=== PATIENT | female | born 1970 | race Hispanic/Latino ===

== ENCOUNTER 2016-11-10 14:57 | Observation (INO) | payer BC ==
--- NOTE | 2016-11-10 15:52 | ED PDOC ---
HPI: Chest Pain Chief Complaint (Provider): Chest Pain History Per: Patient History/Exam Limitations: no limitations Onset/Duration Of Symptoms: Intermittent Episodes (x 1 wk) Current Symptoms Are (Timing): Intermittent Episodes (not present at this time) Quality: Pressure Modifying Factors: None Exacerbating Factors: None Alleviating Factors: None <Nik Fry - Last Filed: 11/10/16 18:27> <Ketty Zavaleta - Last Filed: 11/10/16 18:32> Time Seen by Provider: 11/10/16 15:15 Chief Complaint (Nursing): Chest Pain Additional Complaint(s): 46 year old female with medical history of HTN presents to ED via PCP due to chest pain and abnormal EKG. Patient states she has been having chest pressure for 1 week, in which she was evaluated by her PCP this morning. Patient was found to have an abnormal EKG (RBBB) and sent to ED. Patient states chest pressure is intermittent and has an associated dry cough/palpitations. Patient states PCP has been adjusting HTN medications due to propensity to have side effects of medications (including rash, palpitations). Patient denies fever, chills, recent illness/travel, headache, change of vision, dyspnea, abdominal pain, trauma, back pain, urinary/bowel changes, vaginal bleeding, or drug/ tobacco use. Patient drinks beer daily 1-5 beers per day. Denies family history of cardiac disease. LMP: 1 month ago (estimated by patient) PMD : Tracy (Nik Fry) Past Medical History Reviewed: Historical Data, Nursing Documentation, Vital Signs - Medical History PMH: HTN - Surgical History Surgical History: No Surg Hx - Family History Family History: States: No Known Family Hx - Social History Current smoker - smoking cessation education provided: No Alcohol: > 2 Drinks/Day Drugs: Denies <Nik Fry - Last Filed: 11/10/16 18:27> <Ketty Zavaleta - Last Filed: 11/10/16 18:32> Vital Signs: Last Vital Signs Temp 97.6 F 11/10/16 15:05 Pulse 73 11/10/16 15:05 Resp 20 11/10/16 15:05 BP 161/78 H 11/10/16 15:05 Pulse Ox 99 11/10/16 18:27 - Home Medications Home Medications: Ambulatory Orders Medication Instructions Recorded Lisinopril [Zestril] 30 mg PO DAILY 11/10/16 - Allergies Allergies/Adverse Reactions: Allergies Allergy/AdvReac Type Severity Reaction Status Date / Time No Known Allergies Allergy Verified 11/10/16 15:05 AUDI Risk Score for UA/NSTEMI - AUDI Risk Score Age > 64: NO 3 or more CAD Risk Factors: NO Known CAD (Stenosis greater than 50%): NO Aspirin use in past 7 days: NO Severe Angina: NO EKG ST changes greater than 0.5mm: NO Positive Cardiac Marker: NO AUDI Score: 0 Risk %: 5% <Nik Fry - Last Filed: 11/10/16 18:27> Review of Systems ROS Statement: Except As Marked, All Systems Reviewed And Found Negative Cardiovascular: Positive for: Chest Pain, Palpitations Respiratory: Positive for: Shortness of Breath <Nik Fry - Last Filed: 11/10/16 18:27> Physical Exam - Reviewed Nursing Documentation Reviewed: Yes Vital Signs Reviewed: Yes - Physical Exam Appears: Positive for: Well, Non-toxic, No Acute Distress Head Exam: Positive for: ATRAUMATIC, NORMAL INSPECTION, NORMOCEPHALIC Skin: Positive for: Normal Color, Warm, Dry Eye Exam: Positive for: Normal appearance, EOMI, PERRL ENT: Positive for: Normal ENT Inspection Neck: Positive for: Normal, Painless ROM, Supple Cardiovascular/Chest: Positive for: Regular Rate, Rhythm. Negative for: Murmur , Irregularly Irregular Respiratory: Positive for: Normal Breath Sounds. Negative for: Rales, Rhonchi, Wheezing Gastrointestinal/Abdominal: Positive for: Normal Exam, Bowel Sounds (present), Soft. Negative for: Tenderness Back: Positive for: Normal Inspection. Negative for: L CVA Tenderness, R CVA Tenderness Extremity: Positive for: Normal ROM. Negative for: Tenderness, Pedal Edema Neurologic/Psych: Positive for: Alert, store receiver II-XII, Oriented, Gait (normal). Negative for: Motor/Sensory Deficits <Nik Fry - Last Filed: 11/10/16 18:27> - Laboratory Results Result Diagrams: 11/10/16 15:55 11/10/16 15:55 - ECG ECG: Positive for: Interpreted By Me, Viewed By Me ECG Rhythm: Positive for: Normal QRS, Normal ST Segment, Sinus Rhythm, Right Bundle Branch Block O2 Sat by Pulse Oximetry: 99 Pulse Ox Interpretation: Normal - Radiology X-Ray: Interpreted by Me, Viewed By Me X-Ray Interpretation: No Acute Disease <Nik Fry - Last Filed: 11/10/16 18:27> - Laboratory Results Result Diagrams: 11/10/16 15:55 11/10/16 15:55 <Ketty Zavaleta - Last Filed: 11/10/16 18:32> - Progress ED Course And Treament: Time: 1550 Initial impression: 46 year old female with medical history of HTN with intermittent episodes of chest pressure associated with cough/palpitations x 1 week. No current symptoms. BP meds changed 2 weeks ago. Plan: * EKG * CARDIAC MONITORING * ASA 325MG PO * CBC * CMP * TROPONIN * CK-MB * PT/PTT * CXR * REEVAL Time: 1800 Labs/CXR reviewed, unremarkable. Patient with risk factors and abnormal EKG. Discussed case with PCP, will admit patient for OBS-TELE. Consult for Dr. Lino delgado. (Nik Fry) Medical Decision Making <Nik Fry - Last Filed: 11/10/16 18:27> <Ketty Zavaleta - Last Filed: 11/10/16 18:32> Medical Decision Making: Patient seen by resident and then seen by me. Patient reports midsternal chest pressure that has now resolved. Normal physical exam. Patient has cardiac risk factors and abnormal ekg- EKG shows NSR at 66bpm with LAD and incomplete RBBB with no prior for comparison. Trop x 1 negative. Will transfer to observation for further evaluation. (Ketty Zavaleta) Disposition - Patient ED Disposition Is Patient to be Admitted: Yes Counseled Patient/Family Regarding: Studies Performed, Diagnosis - Disposition Disposition Time: 18:26 - Pt Status Changed To: Hospital Disposition Of: Observation <Nik Fry - Last Filed: 11/10/16 18:27> <Ketty Zavaleta - Last Filed: 11/10/16 18:32> - Clinical Impression Clinical Impression: Chest pain - Disposition Condition: FAIR
[2016-11-10 16:57] LABS: BASO % 0.5 % (0.0-2.0); EOS # 0.1 K/uL (0.0-0.7); EOS % 1.2 % (0.0-4.0); HEMATOCRIT 41.1 % (34.0-47.0); LYMPH # 1.4 K/uL (1.0-4.3); LYMPH % 17.9 % (20.0-40.0); MEAN CELL VOLUME 88.5 fl (81.0-99.0); MEAN CORPUSCULAR HGB CONC 32.8 g/dL (33.0-37.0); MEAN PLATELET VOLUME 9.2 fl (7.2-11.7); MONO # 0.7 K/uL (0.0-0.8); MONO % 8.6 % (0.0-10.0); NEUT # 5.7 K/uL (1.8-7.0); NEUT % 71.8 % (50.0-75.0); RED CELL DISTRIBUTION WIDTH 13.8 % (11.5-14.5); WHITE BLOOD COUNT 7.9 K/uL (4.8-10.8)
[2016-11-10 16:58] LABS: ALB/GLOB RATIO 1.2 (1.0-2.1); ALKALINE PHOSPHATASE 92 U/L (38-126); ALT/SGPT 28 U/L (9-52); AST/SGOT 33 U/L (14-36); BILIRUBIN,TOTAL 0.4 mg/dl (0.2-1.3); BLOOD UREA NITROGEN 12 mg/dl (7-17); CALCIUM 9.6 mg/dL (8.4-10.2); CARBON DIOXIDE 24 mmol/L (22-30); CHLORIDE 103 mmol/L (98-107); GLUCOSE,RANDOM 87 mg/dL (65-105); POTASSIUM 3.6 MMOL/L (3.6-5.0); SODIUM 138 mmol/l (132-148); TOTAL PROTEIN 8.3 G/DL (6.3-8.2)
[2016-11-10 17:06] LABS: PARTIAL THROMBOPLASTIN TIME 25.7 SECONDS (23.3-32.5)
[2016-11-10 17:38] LABS: GFR AFRICAN-AMERICAN > 60
--- NOTE | 2016-11-10 18:35 | RAD ---
HISTORY: chest pressure COMPARISON: No prior. FINDINGS: LUNGS: No active pulmonary disease. PLEURA: No significant pleural effusion identified, no pneumothorax apparent. CARDIOVASCULAR: Normal. OSSEOUS STRUCTURES: No significant abnormalities. VISUALIZED UPPER ABDOMEN: Normal. OTHER FINDINGS: None. IMPRESSION: No active disease.
--- NOTE | 2016-11-11 06:28 | CP.PCM.CON ---
History of Present Illness - History of Present Illness History of Present Illness: I was asked to see pateint by Ramya Garg APN and Dr. Evangelista. Patient is a 46 year old male with PMH HTN who presents with chest pain. The patient has had HTN which is difficult to control, and has been on various different therapies. The patietn states she has noted intermittent substernal chest pressure. Symptoms occur with lifting heavy objects or exerting herself. The patient states symptoms have become progressively worse. Review of Systems - Constitutional Constitutional: absent: As Per HPI, Anorexia, Chills, Daytime Sleepiness, Excessive Sweating, Fatigue, Fever, Frequent Falls, Headache, Increased Appetite , Lethargy, Malaise, Night Sweats, Snoring, Sleep Apnea, Weight Gain, Weight Loss, Weakness, Other - EENT Eyes: absent: As Per HPI, Blind Spots, Blurred Vision, Change in Vision, Decreased Night Vision, Diplopia, Discharge, Dry Eye, Exophthalmos, Floaters, Irritation, Itchy Eyes, Loss of Peripheral Vision, Pain, Photophobia, Requires Corrective Lenses, Sees Flashes, Spots in Vision, Tunnel Vision, Other Visual Disturbances, Loss of Vision, Other Ears: absent: As Per HPI, Decreased Hearing, Ear Discharge, Ear Pain, Tinnitus, Abnormal Hearing, Disequilibrium, Dizziness, Other Nose/Mouth/Throat: absent: As Per HPI, Epistaxis, Nasal Congestion, Nasal Discharge, Nasal Obstruction, Nasal Trauma, Nose Pain, Post Nasal Drip, Sinus Pain, Sinus Pressure, Bleeding Gums, Change in Voice, Dental Pain, Dry Mouth, Dysphagia, Halitosis, Hoarsness, Lip Swelling, Mouth Lesions, Mouth Pain, Odynophagia, Sore Throat, Throat Swelling, Tongue Swelling, Facial Pain, Neck Pain, Neck Mass, Other - Breasts Breasts: absent: As Per HPI, Change in Shape, Mass, Pain, Nipple Discharge, Nipple Inversion, Skin Changes, Swelling, Other - Cardiovascular Cardiovascular: Chest Pain - Respiratory Respiratory: absent: As Per HPI, Cough, Dyspnea, Hemoptysis, Dyspnea on Exertion , Wheezing, Snoring, Stridor, Pain on Inspiration, Chest Congestion, Excessive Mucous Production, Change in Mucous Color, Pain with Coughing, Other - Gastrointestinal Gastrointestinal: absent: As Per HPI, Abdominal Pain, Belching, Bloating, Change in Bowel Habits, Change in Stool Character, Coffee Ground Emesis, Constipation, Cramping, Diarrhea, Dyspepsia, Dysphagia, Early Satiety, Excessive Flatus, Fecal Incontinence, Heartburn, Hematemesis, Hematochezia, Loose Stools, Melena, Nausea, Odynophagia, Temesmus, Vomiting, Other - Genitourinary Genitourinary: absent: As Per HPI, Change in Urinary Stream, Difficulty Urinating, Dysuria, Flank Pain, Hematuria, Pyuria, Nocturia, Urinary Incontinence, Urinary Frequency, Urinary Hesitance, Urinary Urgency, Voiding Freq/Small Amts, Freq UTI, Hx Renal/Bladder Calculi, Hx /Renal Surgery, Bladder Distension, Other - Musculoskeletal Musculoskeletal: absent: As Per HPI, Abnormal Gait, Arthralgias, Atrophy, Back Pain, Deformity, Joint Swelling, Limited Range of Motion, Loss of Height, Muscle Cramps, Muscle Weakness, Myalgias, Neck Pain, Numbness, Radiating Pain into Limb, Stiffness, Tingling, Other - Integumentary Integumentary: absent: As Per HPI, Acne, Alopecia, Bleeding Lesions, Change in Hair, Change in Nails, Change in Pigmentation, Changing Lesions, Dry Skin, Erythema, Furuncle, Hirsutism, Lesions, New Lesions, Non-Healing Lesions, Photosensitivity, Pruritus, Rash, Skin Pain, Skin Ulcer, Sores, Striae, Swelling , Unusual Bruising, Wounds, Jaundice, Other - Neurological Neurological: absent: As Per HPI, Abnormal Gait, Abnormal Hearing, Abnormal Movements, Abnormal Speech, Behavioral Changes, Burning Sensations, Confusion, Convulsions, Disequilibrium, Dizziness, Numbness, Focal Weakness, Frequent Falls , Headaches, Lack of Coordination, Loss of Vision, Memory Loss, Paresthesias, Radicular Pain, Restless Legs, Sensory Deficit, Syncope, Tingling, Tremor, Vertigo, Weakness, Other Visual Disturbances, Other - Psychiatric Psychiatric: absent: As Per HPI, Abnormal Sleep Pattern, Anhedonia, Anxiety, Auditory Hallucinations, Behavioral Changes, Change in Appetite, Change in Libido, Confusion, Depression, Difficulty Concentrating, Hallucinations, Homicidal Ideation, Hopelessness, Irritability, Memory Loss, Mood Swings, Panic Attacks, Paranoia, Suicidal Ideation, Visual Hallucinations, Tactile Hallucinations, Other - Endocrine Endocrine: absent: As Per HPI, Change in Body Appearance, Change in Libido, Cold Intolorance, Deepening of Voice, Excessive Sweating, Fatigue, Flushing, Heat Intolorance, Increase in Ring/Shoe/Hat Size, Palpitations, Polydipsia, Polyphagia, Polyuria, Other - Hematologic/Lymphatic Hematologic: absent: As Per HPI, Easy Bleeding, Easy Bruising, Lymphadenopathy, Other Past Patient History - Past Medical History & Family History Past Medical History?: Yes - Past Social History Smoking Status: Never Smoked - CARDIAC Hx Cardiac Disorders: Yes Hx Hypertension: Yes - PULMONARY Hx Respiratory Disorders: No - NEUROLOGICAL Hx Neurological Disorder: Yes Hx Vertigo: Yes - HEENT Hx HEENT Problems: No - RENAL Hx Chronic Kidney Disease: No - ENDOCRINE/METABOLIC Hx Endocrine Disorders: No - HEMATOLOGICAL/ONCOLOGICAL Hx Blood Disorders: No Hx AIDS: No Hx Human Immunodeficiency Virus (HIV): No - INTEGUMENTARY Hx Dermatological Problems: No - MUSCULOSKELETAL/RHEUMATOLOGICAL Hx Musculoskeletal Disorders: No Hx Falls: No - GASTROINTESTINAL Hx Gastrointestinal Disorders: No - GENITOURINARY/GYNECOLOGICAL Hx Genitourinary Disorders: No - PSYCHIATRIC Hx Psychophysiologic Disorder: No Hx Substance Use: No - SURGICAL HISTORY Hx Surgeries: No - ANESTHESIA Hx Anesthesia: No Meds Allergies/Adverse Reactions: Allergies Allergy/AdvReac Type Severity Reaction Status Date / Time No Known Allergies Allergy Verified 11/10/16 15:05 - Medications Medications: Current Medications Aspirin (Aspirin Chewable) 81 mg PO DAILY FREDIS Lisinopril (Zestril) 30 mg PO DAILY FREDIS Physical Exam - Constitutional Appears: Non-toxic - Head Exam Head Exam: NORMAL INSPECTION - Eye Exam Eye Exam: Normal appearance - ENT Exam ENT Exam: Mucous Membranes Moist - Neck Exam Neck exam: Positive for: Full Rom - Respiratory Exam Respiratory Exam: NORMAL BREATHING PATTERN - Cardiovascular Exam Cardiovascular Exam: REGULAR RHYTHM - GI/Abdominal Exam GI & Abdominal Exam: Normal Bowel Sounds - Rectal Exam Rectal Exam: Deferred - Extremities Exam Extremities exam: Positive for: normal inspection - Back Exam Back exam: NORMAL INSPECTION - Neurological Exam Neurological exam: Alert, Oriented x3 - Psychiatric Exam Psychiatric exam: Normal Affect - Skin Skin Exam: Normal Color Results - Vital Signs Recent Vital Signs: Last Vital Signs Temp 97.8 F 11/11/16 05:04 Pulse 68 11/11/16 05:04 Resp 19 11/11/16 05:04 BP 136/91 H 11/11/16 05:04 Pulse Ox 99 11/11/16 05:04 - Labs Result Diagrams: 11/10/16 15:55 11/10/16 15:55 Labs: Laboratory Results - last 24 hr 11/10/16 23:13 Troponin I < 0.0120 - EKG Data EKG Interpreted by: Myself EKG shows normal: Sinus rhythm Assessment & Plan (1) Chest pain Assessment and Plan: recommend admission to telemetry to rule out for myocardial infarction. Recommend stress test in am. Status: Acute (2) HTN (hypertension) Assessment and Plan: will readjust antiHTN therapy Status: Acute
[2016-11-11 07:14] LABS: BASO % 0.6 % (0.0-2.0); EOS # 0.1 K/uL (0.0-0.7); EOS % 1.5 % (0.0-4.0); HEMATOCRIT 40.1 % (34.0-47.0); LYMPH # 1.7 K/uL (1.0-4.3); LYMPH % 26.7 % (20.0-40.0); MEAN CELL VOLUME 88.2 fl (81.0-99.0); MEAN CORPUSCULAR HEMOGLOBIN 29.5 pg (27.0-31.0); MEAN CORPUSCULAR HGB CONC 33.5 g/dL (33.0-37.0); MEAN PLATELET VOLUME 9.3 fl (7.2-11.7); MONO # 0.7 K/uL (0.0-0.8); MONO % 10.7 % (0.0-10.0); NEUT # 3.8 K/uL (1.8-7.0); NEUT % 60.5 % (50.0-75.0); NRBC % 0.1 % (0.0-0.0); RED CELL DISTRIBUTION WIDTH 14.2 % (11.5-14.5); WHITE BLOOD COUNT 6.3 K/uL (4.8-10.8)
[2016-11-11 07:34] LABS: ALB/GLOB RATIO 1.2 (1.0-2.1); ALKALINE PHOSPHATASE 78 U/L (38-126); ALT/SGPT 27 U/L (9-52); AST/SGOT 28 U/L (14-36); BILIRUBIN,TOTAL 0.5 mg/dl (0.2-1.3); BLOOD UREA NITROGEN 11 mg/dl (7-17); CALCIUM 9.3 mg/dL (8.4-10.2); CARBON DIOXIDE 28 mmol/L (22-30); CHLORIDE 103 mmol/L (98-107); GFR AFRICAN-AMERICAN > 60; GLUCOSE,RANDOM 81 mg/dL (65-105); POTASSIUM 3.8 MMOL/L (3.6-5.0); SODIUM 140 mmol/l (132-148); TOTAL PROTEIN 7.5 G/DL (6.3-8.2)
--- NOTE | 2016-11-11 07:48 | CP.PCM.HP ---
History of Present Illness - History of Present Illness History of Present Illness: pt admitted to [facility] for cp. at present still w/ mild chest pressure. no f/c , n/v/d. trops negative x 3, cardio consult appriciated. pending stress symptoms on/off but getting worse. ekg reveiwed bw noted. Present on Admission - Present on Admission Any Indicators Present on Admission: No Review of Systems - Cardiovascular Cardiovascular: As Per HPI, Chest Pain Past Patient History - Past Medical History & Family History Past Medical History?: Yes - Past Social History Smoking Status: Never Smoked - CARDIAC Hx Cardiac Disorders: Yes Hx Hypertension: Yes - PULMONARY Hx Respiratory Disorders: No - NEUROLOGICAL Hx Neurological Disorder: Yes Hx Vertigo: Yes - HEENT Hx HEENT Problems: No - RENAL Hx Chronic Kidney Disease: No - ENDOCRINE/METABOLIC Hx Endocrine Disorders: No - HEMATOLOGICAL/ONCOLOGICAL Hx Blood Disorders: No Hx AIDS: No Hx Human Immunodeficiency Virus (HIV): No - INTEGUMENTARY Hx Dermatological Problems: No - MUSCULOSKELETAL/RHEUMATOLOGICAL Hx Musculoskeletal Disorders: No Hx Falls: No - GASTROINTESTINAL Hx Gastrointestinal Disorders: No - GENITOURINARY/GYNECOLOGICAL Hx Genitourinary Disorders: No - PSYCHIATRIC Hx Psychophysiologic Disorder: No Hx Substance Use: No - SURGICAL HISTORY Hx Surgeries: No - ANESTHESIA Hx Anesthesia: No Meds Home Medications: Home Medication List Medication Instructions Recorded Confirmed Type Aspirin [Aspirin Chewable] 81 mg PO DAILY 11/11/16 Rx Allergies/Adverse Reactions: Allergies Allergy/AdvReac Type Severity Reaction Status Date / Time No Known Allergies Allergy Verified 11/10/16 15:05 Physical Exam - Constitutional Appears: Well, Non-toxic, No Acute Distress - Head Exam Head Exam: ATRAUMATIC, NORMAL INSPECTION, NORMOCEPHALIC - Eye Exam Eye Exam: EOMI, Normal appearance, PERRL Pupil Exam: NORMAL ACCOMODATION, PERRL - ENT Exam ENT Exam: Mucous Membranes Moist, Normal Exam - Neck Exam Neck exam: Positive for: Normal Inspection - Respiratory Exam Respiratory Exam: Clear to Auscultation Bilateral, NORMAL BREATHING PATTERN - Cardiovascular Exam Cardiovascular Exam: REGULAR RHYTHM, RRR, +S1, +S2 - GI/Abdominal Exam GI & Abdominal Exam: Normal Bowel Sounds, Soft. absent: Tenderness - Extremities Exam Extremities exam: Positive for: full ROM, normal capillary refill, normal inspection, pedal pulses present - Back Exam Back exam: NORMAL INSPECTION - Neurological Exam Neurological exam: Alert, CN II-XII Intact, Normal Gait, Oriented x3, Reflexes Normal - Psychiatric Exam Psychiatric exam: Normal Affect, Normal Mood - Skin Skin Exam: Dry, Intact, Normal Color, Warm Results - Vital Signs Recent Vital Signs: Last Vital Signs Temp 97.8 F 11/11/16 05:04 Pulse 68 11/11/16 05:04 Resp 19 11/11/16 05:04 BP 136/91 H 11/11/16 05:04 Pulse Ox 99 11/11/16 05:04 - Labs Result Diagrams: 11/11/16 05:40 11/11/16 05:40 Labs: Laboratory Results - last 24 hr 11/10/16 11/11/16 11/11/16 23:13 05:40 05:40 WBC 6.3 RBC 4.55 Hgb 13.4 Hct 40.1 MCV 88.2 MCH 29.5 MCHC 33.5 RDW 14.2 Plt Count 187 MPV 9.3 Neut % (Auto) 60.5 Lymph % (Auto) 26.7 [place] % (Auto) 10.7 H Eos % (Auto) 1.5 Baso % (Auto) 0.6 Neut # 3.8 Lymph # 1.7 [place] # 0.7 Eos # 0.1 Baso # 0.0 Sodium 140 Potassium 3.8 Chloride 103 Carbon Dioxide 28 Anion Gap 13 BUN 11 Creatinine 0.7 Est GFR ( Amer) > 60 Est GFR (Non-Af Amer) > 60 Random Glucose 81 Calcium 9.3 Total Bilirubin 0.5 AST 28 ALT 27 Alkaline Phosphatase 78 Troponin I < 0.0120 < 0.0120 Total Protein 7.5 Albumin 4.1 Globulin 3.3 Albumin/Globulin Ratio 1.2 Assessment & Plan (1) DVT prophylaxis Assessment and Plan: scd and aehose ambulation Status: Acute (2) Chest pain Assessment and Plan: trops cardio asa stress test Status: Acute (3) HTN (hypertension) Assessment and Plan: lisinopril Status: Acute Decision To Admit - Pt Status Changed To: Hospital Disposition Of: Observation - . Bed Request Type: Telemetry Admitting Physician: Mary Evangelista
[2016-11-11 08:21] VITALS: RESP 20; O2SAT 100
[2016-11-11] MEDS ORDERED: LISINOPRIL 30 MG PO SCH (09:00)
[2016-11-11 13:56] VITALS: BP 140/90; PULSE 64; TEMP 98
--- NOTE | 2016-11-11 14:11 | CP.PCM.DIS ---
Provider - Provider Date of Admission: 11/10/16 18:21 Attending physician: Mary Evangelista MD Time Spent in preparation of Discharge (in minutes): 15 Hospital Course - Lab Results Lab Results: Most Recent Lab Values WBC 6.3 K/uL (4.8-10.8) 11/11/16 05:40 RBC 4.55 Mil/uL (3.80-5.20) 11/11/16 05:40 Hgb 13.4 g/dL (12.0-16.0) 11/11/16 05:40 Hct 40.1 % (34.0-47.0) 11/11/16 05:40 MCV 88.2 fl (81.0-99.0) 11/11/16 05:40 MCH 29.5 pg (27.0-31.0) 11/11/16 05:40 MCHC 33.5 g/dL (33.0-37.0) 11/11/16 05:40 RDW 14.2 % (11.5-14.5) 11/11/16 05:40 Plt Count 187 K/uL (130-400) 11/11/16 05:40 MPV 9.3 fl (7.2-11.7) 11/11/16 05:40 Neut % (Auto) 60.5 % (50.0-75.0) 11/11/16 05:40 Lymph % (Auto) 26.7 % (20.0-40.0) 11/11/16 05:40 [place] % (Auto) 10.7 % (0.0-10.0) H 11/11/16 05:40 Eos % (Auto) 1.5 % (0.0-4.0) 11/11/16 05:40 Baso % (Auto) 0.6 % (0.0-2.0) 11/11/16 05:40 Neut # 3.8 K/uL (1.8-7.0) 11/11/16 05:40 Lymph # 1.7 K/uL (1.0-4.3) 11/11/16 05:40 [place]ison # 0.7 K/uL (0.0-0.8) 11/11/16 05:40 Eos # 0.1 K/uL (0.0-0.7) 11/11/16 05:40 Baso # 0.0 K/uL (0.0-0.2) 11/11/16 05:40 PT 11.0 SECONDS (9.6-11.2) 11/10/16 15:55 INR 1.06 (0.92-1.08) 11/10/16 15:55 APTT 25.7 SECONDS (23.3-32.5) 11/10/16 15:55 Sodium 140 mmol/l (132-148) 11/11/16 05:40 Potassium 3.8 MMOL/L (3.6-5.0) 11/11/16 05:40 Chloride 103 mmol/L (98-107) 11/11/16 05:40 Carbon Dioxide 28 mmol/L (22-30) 11/11/16 05:40 Anion Gap 13 (10-20) 11/11/16 05:40 BUN 11 mg/dl (7-17) 11/11/16 05:40 Creatinine 0.7 mg/dL (0.7-1.2) 11/11/16 05:40 Est GFR ( Amer) > 60 11/11/16 05:40 Est GFR (Non-Af Amer) > 60 11/11/16 05:40 Random Glucose 81 mg/dL (65-105) 11/11/16 05:40 Calcium 9.3 mg/dL (8.4-10.2) 11/11/16 05:40 Total Bilirubin 0.5 mg/dl (0.2-1.3) 11/11/16 05:40 AST 28 U/L (14-36) 11/11/16 05:40 ALT 27 U/L (9-52) 11/11/16 05:40 Alkaline Phosphatase 78 U/L (38-126) 11/11/16 05:40 CK-MB (Mass) 0.75 ng/mL (0.0-3.38) 11/10/16 15:55 Troponin I < 0.0120 ng/mL (0.00-0.120) 11/11/16 05:40 Total Protein 7.5 G/DL (6.3-8.2) 11/11/16 05:40 Albumin 4.1 g/dL (3.5-5.0) 11/11/16 05:40 Globulin 3.3 gm/dL (2.2-3.9) 11/11/16 05:40 Albumin/Globulin Ratio 1.2 (1.0-2.1) 11/11/16 05:40 Discharge Exam - Head Exam Head Exam: NORMAL INSPECTION Discharge Plan - Follow Up Plan Condition: FAIR Disposition: HOME/ ROUTINE Additional Instructions: cleared by cardio f/u rmg in am, rted prn, meds per med rec final dx- cp
--- NOTE | 2016-11-12 11:19 | CARD ---
APPROVED REPORT Protocol: KELVIN Test Type: Treadmill Stress Test Attending Physician: Dr. Land Referring Physician: Dr. JUANCARLOS Garg [facility] Technologist: Juan Carlos Cisse Test Indications: chest pain Medications: ASA 81 mg, Lisinopril 30mg. Medical History: Hypertension Target HR: 174 bpm Resting ECG: normal Resting Heart Rate: 90 bpm Resting Blood Pressure: 140/90mmHg submaximum (85%): 148 bpm TEST SUMMARY [id number]. [id number]. [id number]/[id number]. [id number]/[id number]. EXERCISESTAGE [id number]/70.0. EXERCISESTAGE [id number]/80.0. EXERCISESTAGE 301:[id number]/80.0. [id number]/78.0. POST EXERCISE Reason for Termination: Target heart rate achieved Target HR: NoMax HR: 164 bpm94% of Maximum Predicted HR: 174 bpm Exercise duration: 3 Stage07:00 min:secExercise capacity: 8.5METs Max Blood Pressure: 152/80mmHg Blood Pressure response to exercise: normal resting BP - appropriate response Heart Rate response to exercise: appropriate Chest Pain: NononeAngina index: 0 Arrhythmia: Nonone ST Change: NononeDeviation: 0 mm INTERPRETATION Stress EKG Conclusion: This is a 46-year-old female being evaluated for chest pain. Her resting EKG was normal. Her resting heart rate was 84 bpm and her resting blood pressure was 140/90. She exercised for 7 minutes with Kelvin protocol attaining a heart rate of 164 bpm which is 94% of maximum predicted heart rate During the test there was no chest pain or shortness of breath. During the test her blood pressure sultana to 2 and she attained a workload of 8.[address] no [address] changes or arrhythmia noted. Impression normal stress test
== END 2016-11-11 15:07 | disposition home or self-care (01) ==
LOC: H.ER 14:57 → H.ERHOLD 18:21 → H.TEL 22:59
PROVIDERS: ADMIT Family Medicine; ATTEND Family Medicine
DX: R07.9 Chest pain, unspecified (principal); I10 Essential (primary) hypertension; I45.10 Unspecified right bundle-branch block; R94.31 Abnormal electrocardiogram [ECG] [EKG]; Z82.49 Family history of ischemic heart disease and other diseases of the circulatory system
CPT/HCPCS: 36415; 71010; 80053; 82553; 84484; 85025; 85610; 85730; 93017; 99285; G0378